=== PATIENT | female | born 1955 | race Caucasian/White ===

== ENCOUNTER 2019-11-17 09:09 | Outpatient (CLI) | payer OTHER ==
[2019-11-17] MEDS ORDERED: GADOBUTROL 10 MMOL/10 ML VIAL ONE (09:52)
[2019-11-17] MEDS ORDERED: GADOBUTROL 10 MMOL/10 ML VIAL IVP ONE (12:17)
--- NOTE | 2019-11-17 18:10 | MRI Report ---
Reason: PAIN IN RT ARM Procedure Date: 11/17/2019 Accession Number: [id number] / [id number] Procedure: MRI - Upper Arm/Humerus RT W/WO CPT Code: Final Report FULL RESULT: EXAM: RIGHT HUMERUS MRI WITHOUT AND WITH CONTRAST EXAM DATE: 11/17/2019 12:10 PM. CLINICAL HISTORY: Pain throughout bicep and shoulder after lifting a box in July. COMPARISON: None. TECHNIQUE: Multiplanar, multisequence T1-weighted and fluid-sensitive sequences of the humerus/upper arm before and after administration of intravenous contrast. IV contrast: 9 cc Gadavist. Other: None. FINDINGS: Bones: No fractures or subluxations. No marrow edema or abnormal enhancement. No bone lesions. Joint Spaces: There is a greater degree of synovial enhancement in the glenohumeral joint capsule than typical, suggestive of synovitis. Additionally, the glenohumeral joint capsule appears thickened and mildly edematous on the coronal T2-weighted images, particularly in the axillary recess, and there is mild pericapsular edema. Findings are suspicious for adhesive capsulitis of the glenohumeral joint. Tendons: The rotator cuff tendons are incompletely assessed on this large ibojv-js-uwkt humerus study; however, no large full-thickness rotator cuff tear is present. Remaining visible tendons are also normal including the long head biceps tendon. Musculature: No edema or fatty atrophy. Other: The subcutaneous tissues are unremarkable. No abscess or cellulitis. No unexpected enhancement on the postcontrast images. IMPRESSION: 1. Findings suspicious for adhesive capsulitis of the glenohumeral joint. The remainder of the study is unremarkable. RADIA
== END 2019-11-17 09:10 | disposition home or self-care (01) ==
LOC: DI 09:09
PROVIDERS: ATTEND Internal Medicine
DX: R93.7 Abnormal findings on diagnostic imaging of other parts of musculoskeletal system (principal)
CPT/HCPCS: 73220; A9585

== ENCOUNTER 2021-04-29 16:16 | Emergency (ER) | payer OTHER ==
[2021-04-29] MEDS ORDERED: HYDROmorphone 1 MG/ML CARPUJECT IVP STA (16:37)
[2021-04-29] MEDS ORDERED: KETOROLAC 30 MG/ML VIAL IVP STA (16:37)
--- NOTE | 2021-04-29 16:38 | ED Physician Documentation ---
PD HPI ABD PAIN - Stated complaint Stated Complaint: VOMITING, LOW BACK PX - Chief complaint Chief Complaint: Abd Pain - History obtained from History obtained from: Patient - Additional information Additional information: 65-year-old woman with type 2 diabetes presents with left flank pain associated with vomiting for the last 2 days. Pain is severe. She has not had anything like this before. No history of renal colic. No urinary complaints. There is no associated diarrhea. 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 - Present Medications Home Medications: Ambulatory Orders Medication Instructions Recorded Confirmed Aspirin [Vazalore] 1 tab DAILY 04/29/21 04/29/21 Atorvastatin Calcium 1 tab DAILY 04/29/21 04/29/21 Levothyroxine Sodium [Synthroid] 1 tab DAILY 04/29/21 04/29/21 Lisinopril [Zestril] 1 tab DAILY 04/29/21 04/29/21 Melatonin 1 tab DAILY 04/29/21 04/29/21 Mesalamine [Delzicol] 1 cap DAILY 04/29/21 04/29/21 Multivitamin 1 tab DAILY 04/29/21 04/29/21 Ondansetron Odt [Zofran] 4 mg TL Q6H PRN #10 tablet 04/29/21 Oxycodone HCl/Acetaminophen 1 - 2 each PO Q6H PRN #14 tablet 04/29/21 [Percocet 5-325 mg Tablet] Pantoprazole [Protonix] 1 tab DAILY 04/29/21 04/29/21 Sitagliptin Phosphate [Januvia] 1 tab DAILY 04/29/21 04/29/21 Tamsulosin [Flomax] 0.4 mg PO DAILY #14 cap 04/29/21 Trospium Chloride 1 tab BID 04/29/21 04/29/21 - Allergies Allergies/Adverse Reactions: Allergies Allergy/AdvReac Type Severity Reaction Status Date / Time morphine Allergy hypotension Verified 04/29/21 16:23 - Social History Does the pt smoke?: No Smoking Status: Never smoker Does the pt drink ETOH?: No Does the pt have substance abuse?: No - Immunizations Immunizations are current?: Yes PD ED PE NORMAL - Vitals Vital signs reviewed: Yes - General General: Alert and oriented X 3 (She appears uncomfortable) - Cardiac Cardiac: RRR, No murmur - Respiratory Respiratory: No respiratory distress, Clear bilaterally - Abdomen Abdomen: Soft, Non tender, Non distended - Back Back: No CVA TTP - Derm Derm: Normal color, Warm and dry, No rash - Neuro Neuro: Alert and oriented X 3, Normal speech Results - Vitals Vitals: Vital Signs - 24 hr 04/29/21 04/29/21 04/29/21 16:23 16:58 17:00 Temperature 36.5 C Heart Rate 95 Respiratory 16 Rate Blood Pressure 113/72 O2 Saturation 96 86 L 98 Oxygen O2 Source Nasal cannula - Labs Labs: Laboratory Tests 04/29/21 04/29/21 04/29/21 16:35 16:37 16:37 WBC 15.3 H RBC 4.98 Hgb 14.6 Hct 43.4 MCV 87.1 MCH 29.3 MCHC 33.6 RDW 11.8 L Plt Count 324 MPV 10.3 Neut # (Auto) 11.8 H Lymph # (Auto) 2.1 [place] # (Auto) 1.3 H Eos # (Auto) 0.0 Baso # (Auto) 0.1 Absolute Nucleated RBC 0.00 Nucleated RBC % 0.0 Sodium 140 Potassium 3.7 Chloride 100 L Carbon Dioxide 25 Anion Gap 15.0 H BUN 22 H Creatinine 0.8 Estimated GFR (MDRD) 72 L Glucose 298 H Calcium 9.7 Total Bilirubin 0.7 AST 20 ALT 26 Alkaline Phosphatase 88 Total Protein 7.6 Albumin 4.4 Globulin 3.2 Albumin/Globulin Ratio 1.4 Lipase 43 Urine Color YELLOW Urine Clarity HAZY Urine pH 5.0 Ur Specific [place] 1.025 Urine Protein NEGATIVE Urine Glucose (UA) >=1000 H Urine Ketones NEGATIVE Urine Occult Blood LARGE H Urine Nitrite NEGATIVE Urine Bilirubin NEGATIVE Urine Urobilinogen 0.2 (NORMAL) Ur Leukocyte Esterase NEGATIVE Urine RBC 6-10 H Urine WBC 0-3 Ur Squamous Epith Cells FEW Squamous Urine Crystals 11-25 Uric Acid Urine Bacteria Few Ur Microscopic Review INDICATED Urine Culture Comments NOT INDICATED PD MEDICAL DECISION MAKING - ED course ED course: 65-year-old woman presents with left flank pain and vomiting. Found to have 3 mm left UVJ stone. Pain was much better after meds here but it did make her more nauseous, but using divided doses of nausea medication and time she felt much better and was discharged. I am prescribing a short course of short-acting opioid pain medication for this patient. 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 I have discussed that the opioids are for short term therapy only, and will not be refilled from the ED. Departure - Departure Disposition: 01 Home, Self Care Clinical Impression: Renal colic Condition: Good Record reviewed to determine appropriate education?: Yes Instructions: ED Stone Renal W Colic Follow-Up: Fantasma Rockwell MD [Physician No Access] - Prescriptions: Tamsulosin [Flomax] 0.4 mg PO DAILY #14 cap Oxycodone HCl/Acetaminophen [Percocet 5-325 mg Tablet] 1 - 2 each PO Q6H PRN #14 tablet PRN Reason: pain Ondansetron Odt [Zofran] 4 mg TL Q6H PRN #10 tablet PRN Reason: Nausea / Vomiting Comments: Prescription sent electronically to [facility] pharmacy. You have a 3 mm kidney stone at the left ureterovesicular junction, it is almost in the urine. It should come out on its own at which point your pain should be completely gone. If you have pain for more than a few more days, consider following up with a urologist. The closest to you is listed on this form. I am prescribing a short course of narcotic pain medication for you. These are potentially dangerous and addictive medications that should be used carefully. These medications may constipate you. Take an thdu-ujd-mgznqwi stool softener (docusate) twice daily with plenty of water while taking these medications. If you go 24 hours without a bowel movement, take kror-nbj-aupzocq miralax, per package instructions. Do not drink or drive while taking these medications. If you received narcotic or sedating medications while in the emergency department, do not drive for 24 hours. Store this medication in a safe, secure place and out of reach of children. It is a violation of federal law to give or sell this medication to another person or to use in a manner other than prescribed. The ED will not refill narcotic prescriptions, including prescriptions lost or stolen. To dispose of unwanted medications: 1. [facility] at [address] in [place] has a medication drop box. They accept prescription medications (in pill form) Friday through Friday 9:00 a.m. to 5:00 p.m. 2. The [facility] accepts prescription medications (in pill form only) for disposal year round. Call for more information. 3. Contact the [facility] for the next [facility] sponsored prescription drug collection event. , [phone], or [phone]; Note that many narcotic pain relievers also contain Tylenol/acetaminophen. Please ensure that your total dose of acetaminophen from all sources does not exceed 3 g (3000 mg) per day.
[2021-04-29 16:43] LABS: BASOPHILS # (AUTO) 0.1 10^3/uL (0.0-0.1); BASOPHILS % (AUTO) 0.3 %; EOSINOPHILS % (AUTO) 0.3 %; HCT - HEMATOCRIT 43.4 % (37.0-47.0); HGB - HEMOGLOBIN 14.6 g/dL (12.0-16.0); LYMPHOCYTES # (AUTO) 2.1 10^3/uL (1.5-3.5); LYMPHOCYTES % (AUTO) 13.6 %; MEAN CORPUSCULAR HEMOGLOBIN 29.3 pg (27.0-31.0); MEAN CORPUSCULAR HGB CONC 33.6 g/dL (32.0-36.0); MEAN CORPUSCULAR VOLUME 87.1 fL (81.0-99.0); MEAN PLATELET VOLUME 10.3 fL (7.9-10.8); MONOCYTES # (AUTO) 1.3 10^3/uL (0.0-1.0); MONOCYTES % (AUTO) 8.3 %; NEUTROPHILS # (AUTO) 11.8 10^3/uL (1.5-6.6); NEUTROPHILS % (AUTO) 77.2 %; PLT - PLATELET COUNT 324 10^3/uL (130-450); RED BLOOD COUNT 4.98 10^6/uL (4.20-5.40); RED CELL DISTRIBUTION WIDTH 11.8 % (12.0-15.0); WHITE BLOOD COUNT 15.3 x10^3/uL (4.8-10.8)
[2021-04-29] MEDS ORDERED: ONDANSETRON 4 MG/2 ML VIAL IVP STA ×2 (16:47→18:36)
[2021-04-29] MEDS ORDERED: ONDANSETRON 4 MG/2 ML VIAL ONE (16:52)
[2021-04-29 16:57] LABS: ALBUMIN 4.4 g/dL (3.2-5.5); ALBUMIN/GLOBULIN RATIO 1.4 (1.0-2.2); BILIRUBIN,TOTAL 0.7 mg/dL (0.2-1.0); CALCIUM 9.7 mg/dL (8.5-10.3); CREATININE 0.8 mg/dL (0.4-1.0); POTASSIUM 3.7 mmol/L (3.5-5.0); TOTAL PROTEIN 7.6 g/dL (6.7-8.2)
[2021-04-29 17:02] LABS: BILIRUBIN,URINE NEGATIVE (NEGATIVE); GLUCOSE, URINE (UA) >=1000 mg/dL (NEGATIVE); KETONES,URINE (UA) NEGATIVE (NEGATIVE); LEUKOCYTE ESTERASE, URINE NEGATIVE (NEGATIVE); NITRITE,URINE NEGATIVE (NEGATIVE); OCCULT BLOOD,URINE LARGE (NEGATIVE); PROTEIN,URINE NEGATIVE (NEGATIVE); UROBILINOGEN,URINE 0.2 (NORMAL) E.U./dL (NORMAL)
[2021-04-29 17:04] LABS: CLARITY,URINE HAZY (CLEAR)
[2021-04-29 17:12] LABS: BACTERIA,URINE Few /HPF (None Seen); CRYSTALS,URINE 11-25 Uric Acid /LPF; SQUAMOUS EPITHELIAL CELL,UR FEW Squamous (<= Few); WBC,URINE 0-3 /HPF (0-5)
[2021-04-29] MEDS ORDERED: METOCLOPRAMIDE 10 MG/2 ML VIAL IVP STA (17:23)
--- NOTE | 2021-04-29 17:30 | CT Report ---
PROCEDURE: Abdomen/Pelvis WO INDICATIONS: l flank pain TECHNIQUE: Noncontrast 5 mm thick sections acquired from the diaphragms to the symphysis. 5 mm coronal and sagi ttal reformats were then performed. For radiation dose reduction, the following was used: automated exposure control, adjustment of mA and/or kV according to patient size. COMPARISON: None. FINDINGS: Image quality: Excellent. ABDOMEN: Lung bases: Lung bases are clear. Heart size is normal. Solid organs: Liver and spleen are normal in size. Gallbladder wall does not appear thickened. P ancreas is normal in contours. No adrenal nodules. There is a 3 mm obstructing stone seen involving the left ureterovesicular junction, as on series 6 i mage 52 and on series 3 image 142. There is Associated mild to moderate left-sided hydroureter and hy dronephrosis. There is minimal left7 perinephric fat straining. No nonobstructing kidney stones are seen. No right-sided hydronephrosis is seen. Peritoneum and bowel: Unenhanced bowel loops demonstrate normal wall thickness and caliber. No free fluid or air. A normal appendix is incidentally noted. Nodes and vessels: No retroperitoneal or mesenteric adenopathy by size criteria. Aorta and inferior vena cava are normal in caliber. Miscellaneous: A mild fat-containing periumbilical hernia is seen. PELVIS: Genitourinary: Bladder wall thickness is normal. Miscellaneous: No inguinal hernias or adenopathy. Bones: No suspicious bony lesions. No vertebral body compression fractures. IMPRESSION: There is a 3 mm obstructing stone seen at the left ureterovesicular junction, with associated left-si ded hydroureter and hydronephrosis. No nonobstructing kidney stones are seen. Incidental note is made of: Fat-containing periumbilical hernia Reviewed by: Yang Galvez MD on 04/29/2021 4:29 PM TONYA Approved by: Yang Galvez MD on 04/29/2021 4:29 PM TONYA Station ID: [id number]
[2021-04-29] MEDS ORDERED: oxyCODONE/ACET 5/325 Prepack 4 PO STA (18:34)
[2021-04-29] MEDS ORDERED: ONDANSETRON ODT 4 MG Prepack 2 TL STA (18:34)
[2021-04-29] MEDS ORDERED: KETOROLAC 15 MG/ML VIAL IVP STA (18:58)
[2021-04-29 19:06] VITALS: BP 137/79
== END 2021-04-29 19:23 | disposition home or self-care (01) ==
LOC: ED 16:16
DX: N13.2 Hydronephrosis with renal and ureteral calculous obstruction (principal)
CPT/HCPCS: 36415; 74176; 80053; 81001; 83690; 85025; 96374; 96375; 96376; 99284; 99285; J1170; J2765; 81003; 87086

== ENCOUNTER 2021-08-22 10:37 | Emergency (ER) | payer OTHER ==
[2021-08-22 11:12] LABS: BASOPHILS # (AUTO) 0.1 10^3/uL (0.0-0.1); BASOPHILS % (AUTO) 0.7 %; EOSINOPHILS # (AUTO) 0.2 10^3/uL (0.0-0.7); EOSINOPHILS % (AUTO) 1.7 %; HCT - HEMATOCRIT 42.2 % (37.0-47.0); HGB - HEMOGLOBIN 14.3 g/dL (12.0-16.0); LYMPHOCYTES # (AUTO) 2.4 10^3/uL (1.5-3.5); LYMPHOCYTES % (AUTO) 25.9 %; MEAN CORPUSCULAR HEMOGLOBIN 29.4 pg (27.0-31.0); MEAN CORPUSCULAR HGB CONC 33.9 g/dL (32.0-36.0); MEAN CORPUSCULAR VOLUME 86.7 fL (81.0-99.0); MEAN PLATELET VOLUME 10.5 fL (7.9-10.8); MONOCYTES # (AUTO) 0.7 10^3/uL (0.0-1.0); MONOCYTES % (AUTO) 7.4 %; NEUTROPHILS # (AUTO) 5.9 10^3/uL (1.5-6.6); NEUTROPHILS % (AUTO) 63.9 %; PLT - PLATELET COUNT 323 10^3/uL (130-450); RED BLOOD COUNT 4.87 10^6/uL (4.20-5.40); WHITE BLOOD COUNT 9.2 x10^3/uL (4.8-10.8)
[2021-08-22 11:22] LABS: ALBUMIN 4.1 g/dL (3.2-5.5); ALBUMIN/GLOBULIN RATIO 1.2 (1.0-2.2); BILIRUBIN,TOTAL 0.8 mg/dL (0.2-1.0); CALCIUM 9.5 mg/dL (8.5-10.3); CREATININE 0.7 mg/dL (0.4-1.0); TOTAL PROTEIN 7.6 g/dL (6.7-8.2)
[2021-08-22 13:35] VITALS: BP 103/62
[2021-08-22] MEDS ORDERED: ONDANSETRON 4 MG/2 ML VIAL IVP STA (13:51)
[2021-08-22] MEDS ORDERED: SODIUM CHLORIDE 0.9% 1,000 ML IV STA (13:51)
--- NOTE | 2021-08-22 13:51 | ED Physician Documentation ---
History of Present Illness - Stated complaint Stated Complaint: R ABD PX - Chief complaint Chief Complaint: Abd Pain - Additonal information Additional information: 65-year-old female presents emergency department for evaluation of acute onset right lower quadrant/right flank pain as well as nausea and vomiting. She also noticed hematuria this AM. No fevers. She states that the symptoms are similar to when she had a left UVJ stone with some obstruction and number of months ago. She ultimately followed up with Dr. Back in [place]. Denies dysuria, no fevers. She is a type II diabetic poorly controlled. She is on Januvia and glipizide. Does not routinely check her sugars and reports a last A1c of 11. She is fully vaccinated and boosted for COVID-19. Review of Systems Constitutional: reports: Reviewed and negative Throat: reports: Reviewed and negative Cardiac: reports: Reviewed and negative Respiratory: reports: Reviewed and negative GI: reports: Abdominal Pain, Nausea, Vomiting : reports: Hematuria. 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 - Present Medications Home Medications: Ambulatory Orders Medication Instructions Recorded Confirmed Aspirin [Vazalore] 1 tab DAILY 04/29/21 04/29/21 Atorvastatin Calcium 1 tab DAILY 04/29/21 04/29/21 Levothyroxine Sodium [Synthroid] 1 tab DAILY 04/29/21 04/29/21 Lisinopril [Zestril] 1 tab DAILY 04/29/21 04/29/21 Melatonin 1 tab DAILY 04/29/21 04/29/21 Mesalamine [Delzicol] 1 cap DAILY 04/29/21 04/29/21 Multivitamin 1 tab DAILY 04/29/21 04/29/21 Ondansetron Odt [Zofran] 4 mg TL Q6H PRN #10 tablet 04/29/21 Oxycodone HCl/Acetaminophen 1 - 2 each PO Q6H PRN #14 tablet 04/29/21 [Percocet 5-325 mg Tablet] Pantoprazole [Protonix] 1 tab DAILY 04/29/21 04/29/21 Sitagliptin Phosphate [Januvia] 1 tab DAILY 04/29/21 04/29/21 Tamsulosin [Flomax] 0.4 mg PO DAILY #14 cap 04/29/21 Trospium Chloride 1 tab BID 04/29/21 04/29/21 HYDROcod/ACETAM 5/325 [Garvin 5/325] 1 tablet PO BID PRN #10 tablet 08/22/21 - Allergies Allergies/Adverse Reactions: Allergies Allergy/AdvReac Type Severity Reaction Status Date / Time morphine Allergy hypotension Verified 08/22/21 10:44 - Social History Does the pt smoke?: No Smoking Status: Never smoker Does the pt drink ETOH?: No Does the pt have substance abuse?: No - Immunizations Immunizations are current?: Yes PD ED PE EXPANDED - General General: Alert, No acute distress, Well developed/nourished - Cardiac Cardiac: Regular Rate, Radial strong equal, Pedal strong equal, Cap refill < 2 sec. No: Murmur Present - Respiratory Respiratory: Clear to ausultation joya. No: Distress, Labored - Abdomen Abdomen: Normal Bowel sounds (Right flank and right CVA tenderness. No guarding or rebound.), Tender to palpation - Back Back: Normal exam. No: Vertebral tenderness - Derm Derm: Normal color, Warm and dry. No: Rash - Extremities Extremities: Normal. No: Deformity, Tenderness - Neuro Neuro: Alert and Oriented X 3. No: Confused, Disoriented Results - Vitals Vitals: Vital Signs - 24 hr 08/22/21 08/22/21 08/22/21 10:41 13:33 13:34 Temperature 35.7 C L Heart Rate 92 69 90 Respiratory 18 Rate Blood Pressure 132/86 H 142/82 H 103/62 O2 Saturation 97 99 99 Oxygen O2 Source Room air - Labs Labs: Laboratory Tests 08/22/21 08/22/21 08/22/21 11:00 11:00 13:25 WBC 9.2 RBC 4.87 Hgb 14.3 Hct 42.2 MCV 86.7 MCH 29.4 MCHC 33.9 RDW 12.0 Plt Count 323 MPV 10.5 Neut # (Auto) 5.9 Lymph # (Auto) 2.4 [place] # (Auto) 0.7 Eos # (Auto) 0.2 Baso # (Auto) 0.1 Absolute Nucleated RBC 0.00 Nucleated RBC % 0.0 Sodium 133 L Potassium 4.0 Chloride 95 L Carbon Dioxide 25 Anion Gap 13.0 BUN 20 Creatinine 0.7 Estimated GFR (MDRD) 85 L Glucose 327 H Calcium 9.5 Total Bilirubin 0.8 AST 19 ALT 28 Alkaline Phosphatase 84 Total Protein 7.6 Albumin 4.1 Globulin 3.5 Albumin/Globulin Ratio 1.2 Lipase 43 Urine Color DARK YELLOW Urine Clarity CLOUDY Urine pH 5.5 Ur Specific [place] >=1.030 H Urine Protein 30 H Urine Glucose (UA) >=1000 H Urine Ketones TRACE Urine Occult Blood LARGE H Urine Nitrite NEGATIVE Urine Bilirubin NEGATIVE Urine Urobilinogen 0.2 (NORMAL) Ur Leukocyte Esterase NEGATIVE Urine RBC TNTC H Urine WBC 4-5 Ur Squamous Epith Cells RARE Squamous Urine Bacteria None Seen Urine Yeast PRESENT Ur Microscopic Review INDICATED Urine Culture Comments NOT INDICATED - Rads (name of study) CT abd Radiology: Final report received (Mild right hydroureteronephrosis due to an approximately 3 mm calculus in the proximal right ureter.) PD MEDICAL DECISION MAKING - ED course Complexity details: reviewed results, re-evaluated patient, d/w patient ED course: 65-year-old female presents emergency department with right flank and CVA tenderness. This is in the setting of a history of previous renal colic the last time on the left side. Today screening labs are unremarkable sparing hyperglycemia but expected with her history of diabetes. Her urine does not show infection though there is leonid hematuria. CT of the abdomen does show a mild right proximal ureter stone measuring about 3 mm with some associated hydronephrosis. Patient has previously established with Dr. Back and is advised to follow-up. Will prescribe a limited amount of hydrocodone as well as ibuprofen for analgesia. Emergent return precautions discussed. I am prescribing a short course of short-acting opioid pain medication for this patient. 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 I have discussed that the opioids are for short term therapy only, and will not be refilled from the ED. Departure - Departure Disposition: 01 Home, Self Care Clinical Impression: Hydronephrosis Qualifiers: Hydronephrosis type: with ureteral calculous obstruction Qualified Code(s): N13.2 - Hydronephrosis with renal and ureteral calculous obstruction Condition: Stable Record reviewed to determine appropriate education?: Yes Instructions: Hydronephrosis Ch Follow-Up: Bhumika Back MD [Physician No Access] - Prescriptions: HYDROcod/ACETAM 5/325 [Garvin 5/325] 1 tablet PO BID PRN #10 tablet PRN Reason: Pain Comments: Estephania you are seen in the emergency department today for right-sided abdominal pain. The CT scan shows that you do have a 3 mm right sided proximal ureter stone. This is causing mild swelling within the kidney and ureter. This is small enough that I anticipate it should pass. It is important that you follow-up with Dr. Grimes. We have given you some urine hat to screen your urine. If you passed a stone you can take it into Dr. Grimes's to have it tested. Please schedule an appointment for follow-up as soon as possible. [place] If you find that your symptoms are worsening, you develop fevers, have uncontrolled vomiting or worsening pain despite ibuprofen or the hydrocodone then please return to the ER for a second look. I am prescribing a short course of narcotic pain medication for you. These are potentially dangerous and addictive medications that should be used carefully. These medications may constipate you. Take an tyht-elb-hymzcdx stool softener (docusate) twice daily with plenty of water while taking these medications. If you go 24 hours without a bowel movement, take lnkr-sjf-hjstcgk miralax, per package instructions. Do not drink or drive while taking these medications. If you received narcotic or sedating medications while in the emergency department, do not drive for 24 hours. Store this medication in a safe, secure place and out of reach of children. It is a violation of federal law to give or sell this medication to another person or to use in a manner other than prescribed. The ED will not refill narcotic prescriptions, including prescriptions lost or stolen. To dispose of unwanted medications: 1. [facility] at [address] in [place] has a medication drop box. They accept prescription medications (in pill form) Friday through Friday 9:00 a.m. to 5:00 p.m. 2. The [facility] accepts prescription medications (in pill form only) for disposal year round. Call for more information. 3. Contact the [facility] for the next [facility] sponsored prescription drug collection event. , [phone], or [phone]; Note that many narcotic pain relievers also contain Tylenol/acetaminophen. Please ensure that your total dose of acetaminophen from all sources does not exceed 3 g (3000 mg) per day.
[2021-08-22 13:53] LABS: BILIRUBIN,URINE NEGATIVE (NEGATIVE); GLUCOSE, URINE (UA) >=1000 mg/dL (NEGATIVE); KETONES,URINE (UA) TRACE mg/dL (NEGATIVE); LEUKOCYTE ESTERASE, URINE NEGATIVE (NEGATIVE); NITRITE,URINE NEGATIVE (NEGATIVE); OCCULT BLOOD,URINE LARGE (NEGATIVE); PH,URINE 5.5 PH (5.0-7.5); PROTEIN,URINE 30 mg/dL (NEGATIVE); UROBILINOGEN,URINE 0.2 (NORMAL) E.U./dL (NORMAL)
[2021-08-22] MEDS ORDERED: HYDROmorphone 1 MG/ML CARPUJECT IVP STA (14:04)
[2021-08-22 14:11] LABS: CLARITY,URINE CLOUDY (CLEAR)
[2021-08-22 14:13] LABS: BACTERIA,URINE None Seen /HPF (None Seen); RBC,URINE TNTC /HPF (0-5); SQUAMOUS EPITHELIAL CELL,UR RARE Squamous (<= Few)
[2021-08-22 14:14] LABS: YEAST,URINE PRESENT
[2021-08-22] MEDS ORDERED: iohexoL-300 100 ML VIAL ONE (14:25)
--- NOTE | 2021-08-22 14:50 | CT Report ---
PROCEDURE: Abdomen/Pelvis W INDICATIONS: right flank pain; hx of renal colic CONTRAST: IV CONTRAST: Isovue 300 ml: 100 PO CONTRAST: *NO PO CONTRAST TECHNIQUE: After the administration of intravenous contrast, 5 mm thick sections acquired from the diaphragms to the symphysis. 5 mm thick coronal and sagittal reformats were acquired. For radiation dose reducti on, the following was used: automated exposure control, adjustment of mA and/or kV according to donnie ent size. COMPARISON: None. FINDINGS: There is a 2-3 mm calculus in the proximal right ureter (series 4 image 50) producing mild hydrourete ronephrosis. No additional urinary tract calculus identified. Small renal hypodensities consistent wi th cysts. Mild to moderate hepatic steatosis. Otherwise no significant abnormality in the liver, spleen, gallbl adder, pancreas, or adrenal glands. No acute enteric pathology demonstrated. Aorta and IVC are within normal limits. No threshold and large intra-abdominal, retrocardial, pelvic, or inguinal lymph nodes . No free fluid in the abdomen or pelvis. No acute osseous abnormality. Included portions of the lung bases are clear. IMPRESSION: Mild right hydroureteronephrosis due to an approximately to-3 mm calculus in the proximal right urete r. Reviewed by: Deric Humphreys MD on 08/22/2021 2:48 PM PST Approved by: Deric Humphreys MD on 08/22/2021 2:48 PM PST Station ID: [id number]
[2021-08-22] MEDS ORDERED: iohexoL-300 100 ML VIAL IVP ONE (16:24)
== END 2021-08-22 15:39 | disposition home or self-care (01) ==
LOC: ED 10:37
DX: N13.2 Hydronephrosis with renal and ureteral calculous obstruction (principal); E11.65 Type 2 diabetes mellitus with hyperglycemia
CPT/HCPCS: 36415; 74177; 80053; 81001; 83690; 85025; 96374; 99283; 99284; J1170; Q9967; 81003; 87086

== ENCOUNTER 2023-04-01 09:39 | Outpatient (CLI) | payer MEDICARE, OTHER ==
--- NOTE | 2023-04-01 13:12 | DEXA Report ---
PROCEDURE: Dexa Spine and/or Hip INDICATIONS: POST MENOPAUSAL TECHNIQUE: Dual energy x-ray absorptiometry (DXA) was performed on a [employer] System. Regions measur ed are the AP Spine, femoral neck, and if needed forearm. COMPARISON: None FINDINGS: Lumbar Spine: Bone Mineral Density 1.085 g/cm/cm,T score -0.8. Left Femoral Neck: Bone Mineral Density 0.818 g/cm/cm, T score -1.6. Left Hip: Bone Mineral Density 1.028 g/cm/cm,T score 0.2. (T score greater or equal to -1.0: NORMAL) (T score from -1.1 to -2.4: OSTEOPENIA) (T score less than or equal to -2.5 to: OSTEOPOROSIS) Impression: By WHO criteria, this patient has low bone density (osteopenia). Patients with diagnosis of osteoporosis or osteopenia should have regular bone mineral density assess ment. For those eligible for Medicare, routine testing is allowed once every 2 years. Testing frequ ency can be increased for patients who have rapidly progressing disease or for those who are receivin g medical therapy to restore bone mass. Reviewed by: Yanely Newsome MD on 04/01/2023 1:11 PM PDT Approved by: Yanely Newsome MD on 04/01/2023 1:11 PM PDT Station ID: [id number]
== END 2023-04-01 09:40 | disposition home or self-care (01) ==
LOC: DI 09:39
PROVIDERS: ATTEND Physician Assistant
DX: Z78.0 Asymptomatic menopausal state (principal); M85.80 Other specified disorders of bone density and structure, unspecified site

== ENCOUNTER 2023-05-21 17:45 | Outpatient (CLI) | payer MEDICARE, OTHER | END 2023-05-21 18:00 | disposition home or self-care (01) | LOC: LAB.N 17:45 | PROVIDERS: ATTEND Nurse Practitioner | DX: N39.0 Urinary tract infection, site not specified (principal) | CPT/HCPCS: 87077; 87086; 87181 ==

== ENCOUNTER 2023-07-03 08:49 | Outpatient (CLI) | payer MEDICARE, OTHER ==
[2023-07-03 12:32] LABS: CREATININE 0.6 mg/dL (0.6-1.3); POTASSIUM 4.3 mmol/L (3.5-4.5)
[2023-07-03 12:44] LABS: ESTIMATED AVERAGE GLUCOSE 226 mg/dL (70-100); HEMOGLOBIN A1c% 9.5 % (4.27-6.07)
== END 2023-07-03 08:50 | disposition home or self-care (01) ==
LOC: LAB.N 08:49
PROVIDERS: ATTEND Physician Assistant
DX: E11.9 Type 2 diabetes mellitus without complications (principal)
CPT/HCPCS: 36415; 80048; 83036

== ENCOUNTER 2023-07-15 12:10 | Outpatient (CLI) | payer MEDICARE, OTHER | END 2023-07-15 12:11 | disposition home or self-care (01) | LOC: RT 12:10 | PROVIDERS: ATTEND Physician Assistant | DX: R07.9 Chest pain, unspecified (principal) | CPT/HCPCS: 93005 ==